=== PATIENT | male | born 1945 ===

== ENCOUNTER 2020-01-13 12:13 | Inpatient (IN) ==
[2020-01-13] MEDS ORDERED: NOREPINEPHRINE 8 MG in SODIUM CHLORIDE 0.9% 242 ML IV PRN (14:43)
[2020-01-13] MEDS ORDERED: MIDAZOLAM 100 MG in SODIUM CHLORIDE 0.9% 80 ML IV PRN (14:51)
[2020-01-13] MEDS: PANTOPRAZOLE 40 MG VIAL IV SCH ×2 (15:00→22:06)
[2020-01-13] MEDS ORDERED: LACTATED RINGERS 1,000 ML IV ONE ×2 (15:00→18:00)
[2020-01-13] MEDS ORDERED: ONDANSETRON 4 MG/2 ML VIAL IV ONE (15:00)
[2020-01-13 15:08] LABS: Basophils % 0.1 % (0.0-0.8); Eosinophils % 0.1 % (0.00-10.9); Hematocrit 24.1 VOL% (42.0-52.0); Hemoglobin 6.8 GM/DL (14.0-18.0); Immature Granulocytes % 5.9 %; Immature Granulocytes Absolute 1.07 #; Lymphocytes # 0.8 10*3/uL (1.4-4.0); Lymphocytes % 4.4 % (21.2-54.2); Mean Corpuscular HGB Conc 28.2 GM/DL (32-36); Mean Corpuscular Volume 83.4 FL (87-102); Mean Platelet Volume 11.4 FL (9.6-12.0); Monocytes % 12.2 % (1.7-12.7); Neutrophils % 77.3 % (38.7-73.9); Platelet Count 222 T/CUMM (130-400); Red Blood Count 2.89 MC/CUMM (3.8-5.5); Red Cell Distribution Width 22.2 % (9.3-17.3); White Blood Count 18.2 T/CUMM (4-12)
[2020-01-13 15:28] LABS: ABG Base Excess -12.8 MMOL/L (-2.5-2.5); ABG HCO3 14.2 MMOL/L (20-26); ABG Oxygen Saturation 99.4 % (95-100); ABG PCO2 48.2 MM HG (35-48); ABG TCO2 15.5 MMOL/L (23-27); Allen Test Positive; Pt O2 Delivery Device Ventilator
[2020-01-13 15:29] LABS: Blood Urea Nitrogen 42 MG/DL (7-18); Calcium 8.3 MG/DL (8.5-10.1); Estimated Glom Filtration Rate 33 ML/MIN; Glucose 96 MG/DL (74-106); Osmolality,Calculated 287.5 MOS/KG (273-304)
[2020-01-13 15:31] LABS: ABG PH 7.122 (7.35-7.45)
[2020-01-13 15:31] LABS: Band Neutrophils 3 % (0-10); Lymphocytes 4 % (20-55); Nucleated Red Blood Cells 3 (0-5); Segmented Neutrophils 83 % (50-85); Total Cells Counted 100
[2020-01-13 15:32] LABS: Anisocytosis 1+; Hypochromasia 1+; Platelet Estimate Adequate; Polychromasia 1+; Target Cells Few
[2020-01-13 15:34] LABS: Ferritin 29.4 ng/ml (26-388)
[2020-01-13] MEDS ORDERED: SODIUM BICARBONATE 50 MEQ/50 ML VIAL IV ONE (15:36)
[2020-01-13 15:47] LABS: INR 1.5; PT Patient Result 16.1 SECS (9.8-11.9); Partial Thromboplastin Time 33.7 SECS (23.9-33.8)
[2020-01-13] MEDS: LACTATED RINGERS 1,000 ML IV SCH ×2 (15:52→22:14)
[2020-01-13] MEDS ORDERED: PHENYLEPHRINE DRIP 40 MG/250 ML PREMIX IV ONE (17:44)
[2020-01-13] MEDS: PHENYLEPHRINE DRIP 40 MG/250 ML PREMIX IV PRN ×2 (17:50→20:30)
[2020-01-13] MEDS: NOREPINEPHRINE 16 MG in SODIUM CHLORIDE 0.9% 234 ML IV PRN (20:00)
[2020-01-13] MEDS: VASOPRESSIN 100 UNITS in SODIUM CHLORIDE 0.9% 95 ML IV SCH (21:34)
[2020-01-13] MEDS: PHENYLEPHRINE INJ 160 MG in SODIUM CHLORIDE 0.9% 234 ML IV PRN (22:30)
[2020-01-14] MEDS: VASOPRESSIN 100 UNITS in SODIUM CHLORIDE 0.9% 95 ML IV SCH ×3 (01:09→09:40)
[2020-01-14] MEDS: NOREPINEPHRINE 16 MG in SODIUM CHLORIDE 0.9% 234 ML IV PRN ×2 (02:41→10:16)
[2020-01-14 02:50] LABS: Basophils # 0.1 10*3/uL (0.0-0.2); Basophils % 0.2 % (0.0-0.8); Immature Granulocytes % 2.5 %; Immature Granulocytes Absolute 0.57 #; Lymphocytes # 1.1 10*3/uL (1.4-4.0); Lymphocytes % 4.8 % (21.2-54.2); Mean Corpuscular HGB Conc 27.3 GM/DL (32-36); Mean Corpuscular Volume 91.1 FL (87-102); Mean Platelet Volume 11.7 FL (9.6-12.0); Monocytes % 5.7 % (1.7-12.7); NRBC # 1.35 10*3/uL; Neutrophils % 86.8 % (38.7-73.9); Platelet Count 165 T/CUMM (130-400); Red Blood Count 3.14 MC/CUMM (3.8-5.5); White Blood Count 22.4 T/CUMM (4-12)
[2020-01-14 03:16] LABS: Hematocrit 28.4 VOL% (42.0-52.0); Hemoglobin 7.8 GM/DL (14.0-18.0)
[2020-01-14 03:19] LABS: ABG Base Excess -22.3 MMOL/L (-2.5-2.5); ABG Oxygen Saturation 97.8 % (95-100); ABG PCO2 33.6 MM HG (35-48)
[2020-01-14 03:21] LABS: ABG PH 6.976 (7.35-7.45)
[2020-01-14] MEDS ORDERED: SODIUM BICARBONATE 50 MEQ/50 ML VIAL IV ONE ×4 (03:35→07:59)
[2020-01-14] MEDS ORDERED: SODIUM CHLORIDE 0.9% 1,000 ML IV PRN ×2 (03:39→05:56)
[2020-01-14 03:41] LABS: INR 2.4
[2020-01-14 04:08] LABS: PT Patient Result 24.5 SECS (9.8-11.9)
[2020-01-14 04:43] LABS: ABG Base Excess -18.5 MMOL/L (-2.5-2.5); ABG HCO3 10.2 MMOL/L (20-26); ABG Oxygen Saturation 97.3 % (95-100); ABG PCO2 33.6 MM HG (35-48)
[2020-01-14 04:45] LABS: Alanine Aminotransferase 520 U/L (16-61); Albumin 1.5 G/DL (3.4-5.0); Alkaline Phosphatase 127 U/L (45-117); Aspartate Amino Transferase 2894 U/L (0-37); Blood Urea Nitrogen 50 MG/DL (7-18); Calcium 7.9 MG/DL (8.5-10.1); Estimated Glom Filtration Rate 21 ML/MIN; Osmolality,Calculated 288.3 MOS/KG (273-304); Total Protein 4.9 G/DL (6.4-8.3)
[2020-01-14 04:45] LABS: ABG PH 7.084 (7.35-7.45)
[2020-01-14 04:51] LABS: Band Neutrophils 5 % (0-10); Lymphocytes 6 % (20-55); Nucleated Red Blood Cells 4 (0-5); Segmented Neutrophils 77 % (50-85); Total Cells Counted 100
[2020-01-14 04:52] LABS: Hypochromasia 1+; Microcytosis Slight; Ovalocytes Slight; Platelet Estimate Adequate
[2020-01-14 05:00] LABS: Glucose < 1 MG/DL (74-106)
[2020-01-14] MEDS ORDERED: DEXTROSE 50% 25 GM/50 ML VIAL IV ONE ×2 (05:02)
[2020-01-14] MEDS ORDERED: LACTULOSE 20 GM/30 ML UDCUP PO SCH ×2 (05:30→11:18)
[2020-01-14] MEDS ORDERED: SODIUM BICARB IV SCH (05:30)
[2020-01-14] MEDS ORDERED: CALCIUM GLUCONATE 1,000 MG in SODIUM CHLORIDE 0.9% 100 ML IV ONE (05:30)
[2020-01-14] MEDS ORDERED: DEXTROSE 10% IV SCH (05:30)
[2020-01-14] MEDS ORDERED: SODIUM POLYSTYRENE SULFATE 15 GM/60 ML BOTTLE PO ONE (05:30)
[2020-01-14] MEDS: PHENYLEPHRINE INJ 160 MG in SODIUM CHLORIDE 0.9% 234 ML IV PRN (06:00)
[2020-01-14 06:55] VITALS: BP 91/53
[2020-01-14 07:53] LABS: Calcium 7.5 MG/DL (8.5-10.1); Osmolality,Calculated 300.7 MOS/KG (273-304)
[2020-01-14] MEDS ORDERED: SODIUM BICARBONATE 50 MEQ/50 ML VIAL IV STA (07:59)
[2020-01-14] MEDS: PANTOPRAZOLE 40 MG VIAL IV SCH (10:15)
[2020-01-14] MEDS ORDERED: SODIUM POLYSTYRENE SULFATE 15 GM/60 ML BOTTLE PO SCH (12:00)
== END 2020-01-14 12:27 | disposition expired | DRG 377 ==
LOC: N.CC 14:00
PROVIDERS: ADMIT Family Medicine; ATTEND Family Medicine